=== PATIENT | female | born 1935 | race Caucasian/White ===

== ENCOUNTER → 2016-04-11 | Outpatient (CLI) | payer OTHER, MEDICARE | LOC: BHFA 10:45 | PROVIDERS: ATTEND Internal Medicine Cardiovascular Disease | DX: I50.9 Heart failure, unspecified (principal) ==

== ENCOUNTER → 2017-01-31 | Outpatient (CLI) | payer OTHER, MEDICARE | LOC: BHFA 11:30 | PROVIDERS: ATTEND Internal Medicine Cardiovascular Disease | DX: I48.91 Unspecified atrial fibrillation (principal) | CPT/HCPCS: 90662-PO; G0008-PO; G0463-PO ==

== ENCOUNTER → 2018-03-06 | Outpatient (CLI) | payer OTHER, MEDICARE | LOC: BHFA 14:00 | PROVIDERS: ATTEND Internal Medicine Cardiovascular Disease | DX: I48.91 Unspecified atrial fibrillation (principal); I42.9 Cardiomyopathy, unspecified; Z95.0 Presence of cardiac pacemaker ==

== ENCOUNTER → 2018-04-12 | Outpatient (CLI) | payer OTHER, MEDICARE | LOC: BHFA 09:30 | PROVIDERS: ATTEND Internal Medicine Interventional Cardiology | DX: I48.0 Paroxysmal atrial fibrillation (principal); R06.02 Shortness of breath | CPT/HCPCS: 78452; 93017; A9500; J2785 ==

== ENCOUNTER → 2018-05-10 | Outpatient (CLI) | payer OTHER, MEDICARE | LOC: FIMAGING 11:25 | PROVIDERS: ATTEND Internal Medicine Pulmonary Disease | DX: J96.11 Chronic respiratory failure with hypoxia (principal) ==

== ENCOUNTER 2018-09-30 18:03 | Emergency (ER) | payer OTHER, MEDICARE | END 2018-09-30 21:01 | disposition home or self-care (01) ==